=== PATIENT | male | born 1970 | race Two or more races ===

== ENCOUNTER 2023-12-20 23:15 | Emergency (ER) | payer OTHER ==
[~2023-12-20] VITALS: Ht 167.6 cm; Wt 95.0 kg
[2023-12-20 23:50] LABS: Basophils # (auto) 0.1 10 ^3/uL (0-0.2); Basophils % (auto) 0.6 % (0.0-2.0); Eosinophils # (auto) 0.3 10 ^3/uL (0-0.8); Eosinophils % (auto) 2.3 % (0.0-7.0); Hemoglobin 15.7 g/dL (13.5-17.5); Lymphocytes # (auto) 3.6 10 ^3/uL (0.4-5.4); Lymphocytes % (auto) 30.3 % (10.0-50.0); Mean Corpuscular Volume 97.2 fL (80.0-100.0); Monocytes % (auto) 8.4 % (0.0-12.0); Neutrophils # (auto) 6.9 10 ^3/uL (1.6-8.6); Neutrophils % (auto) 58.4 % (37.0-80.0); Red Blood Cells 4.63 10^6/uL (4.5-5.90); Red Cell Distribution Width 13.8 % (11.8-14.3); White Blood Cell 11.9 10^3/uL (4.4-10.8)
[2023-12-21] VITALS: TEMP 98.9
[2023-12-21 00:06] LABS: Alanine Aminotransferase 29 U/L (7-40); Albumin 4.7 g/dL (3.2-4.8); Alkaline Phosphatase 96 U/L (46-116); Anion Gap 8 (5-15); Aspartate Aminotransferase 10 U/L (13-40); Blood Urea Nitrogen 8 mg/dL (9-23); Calcium 9.8 mg/dL (8.7-10.4); Carbon Dioxide 24 mmol/L (20-30); Chloride 107 mmol/L (98-107); Glucose 93 mg/dL (74-106); Lipase 47 U/L (12-53); Potassium 3.6 mmol/L (3.5-5.1); Sodium 139 mmol/L (136-145)
[2023-12-21 00:07] LABS: Bilirubin, Total 0.4 mg/dL (0.2-1.0); Total Protein 7.4 g/dL (5.7-8.2)
[2023-12-21] MEDS: KETOROLAC TROMETH 30 MG/ML 1ML VIAL IV ONE (00:27)
[2023-12-21 02:00] VITALS: PULSE 69; RESP 18; O2SAT 96
[2023-12-21 02:04] VITALS: BP 98/70; PULSE 69; RESP 16; O2SAT 94
== END 2023-12-21 03:14 | disposition home or self-care (01) ==
LOC: EDBD 23:15 → ER 23:15 → EDSEX 23:15 → ER 12-21 03:14
DX: R07.89 Other chest pain (principal)
CPT/HCPCS: 36415; 71045; 80053; 83605; 83690; 83880; 84484; 85025; 93005; 96374; 99285; J1885